=== PATIENT | female | born 1995 | race Two or more races ===

== ENCOUNTER 2016-06-13 18:24 | Emergency (ER) | payer SELFPAY ==
[~2016-06-13] VITALS: Ht 157.5 cm; Wt 82.9 kg
[2016-06-13] MEDS ORDERED: KETOROLAC 30 MG/1 ML IM ONE (19:00)
[2016-06-13] MEDS ORDERED: KETOROLAC 30 MG/1 ML ONE (19:03)
[2016-06-13 19:08] LABS: BLOOD UREA NITROGEN 11 mg/dL (7-18)
[2016-06-13 19:14] LABS: ASPARTATE AMINO TRANSFERASE 11 U/L (15-37)
[2016-06-13 19:40] VITALS: BP 107/72
== END 2016-06-13 20:06 | disposition home or self-care (01) ==
LOC: ED 20:00
DX: N83.201 Unspecified ovarian cyst, right side (principal)
CPT/HCPCS: 36415; 76830; 80053; 81003; 83690; 84703; 85025

== ENCOUNTER 2016-08-10 22:26 | Emergency (ER) | payer SELFPAY ==
[~2016-08-10] VITALS: Ht 157.5 cm; Wt 78.2 kg
[2016-08-11 00:30] LABS: BLOOD UREA NITROGEN 9 mg/dL (7-18)
[2016-08-11 02:30] VITALS: BP 109/71
== END 2016-08-11 02:40 | disposition home or self-care (01) ==
LOC: ED 23:59
DX: O46.91 Antepartum hemorrhage, unspecified, first trimester (principal); N93.9 Abnormal uterine and vaginal bleeding, unspecified; N83.202 Unspecified ovarian cyst, left side
CPT/HCPCS: 36415; 76830; 80048; 81001; 82040; 84702; 84703; 85025; 86901

== ENCOUNTER 2016-08-13 18:11 | Emergency (ER) | payer SELFPAY ==
[~2016-08-13] VITALS: Ht 157.5 cm; Wt 79.2 kg
[2016-08-13 18:22] VITALS: BP 113/74
== END 2016-08-13 20:05 | disposition home or self-care (01) ==
LOC: ED 19:59
DX: O20.0 Threatened abortion (principal); F17.200 Nicotine dependence, unspecified, uncomplicated
CPT/HCPCS: 36415; 84702; 99283

== ENCOUNTER 2017-03-11 14:27 | Emergency (ER) | payer OTHER ==
[~2017-03-11] VITALS: Ht 157.5 cm; Wt 78.7 kg
[2017-03-11 16:04] VITALS: BP 128/64
[2017-03-11 16:14] LABS: MICROSCOPIC AUTO
[2017-03-11 16:17] LABS: CULTURE INDICATED? YES
== END 2017-03-11 17:27 | disposition home or self-care (01) ==
LOC: ED 16:32
DX: N93.8 Other specified abnormal uterine and vaginal bleeding (principal)
CPT/HCPCS: 36415; 81001; 84702; 86901; 87086; 99284

== ENCOUNTER 2018-02-13 16:13 | Emergency (ER) | payer OTHER ==
[2018-02-13 17:16] LABS: HCG UR SG 1.028 (1.003-1.030)
[2018-02-13 17:18] LABS: MICROSCOPIC AUTO
[2018-02-13 17:20] LABS: CULTURE INDICATED? YES
[2018-02-13] MEDS ORDERED: ACETAMINOPHEN 325 MG TABLET PO ONE (17:30)
[2018-02-13] MEDS ORDERED: ACETAMINOPHEN 325 MG TABLET ONE (17:35)
[2018-02-13 17:41] VITALS: BP 135/70
== END 2018-02-13 17:44 | disposition home or self-care (01) ==
LOC: ED 17:35
DX: N30.00 Acute cystitis without hematuria (principal); F17.200 Nicotine dependence, unspecified, uncomplicated
CPT/HCPCS: 81001; 81025; 87086; 99283

== ENCOUNTER 2018-03-20 12:17 | Emergency (ER) | payer OTHER ==
[~2018-03-20] VITALS: Ht 157.5 cm; Wt 79.1 kg
[2018-03-20 12:21] VITALS: BP 112/78
== END 2018-03-20 12:58 | disposition home or self-care (01) ==
LOC: ED 12:55
DX: H66.002 Acute suppurative otitis media without spontaneous rupture of ear drum, left ear (principal); K02.9 Dental caries, unspecified; F32.9 Major depressive disorder, single episode, unspecified
CPT/HCPCS: 99283

== ENCOUNTER 2018-04-01 12:20 | Emergency (ER) | payer OTHER ==
[~2018-04-01] VITALS: Ht 157.5 cm; Wt 78.4 kg
[2018-04-01 12:24] VITALS: BP 106/73
[2018-04-01] MEDS ORDERED: hydrOXyzine 50MG TABLET ONE (12:50)
[2018-04-01] MEDS ORDERED: FAMOTIDINE 20 MG TABLET ONE (12:50)
[2018-04-01] MEDS ORDERED: DEXAMETHASONE 4 MG/ML, 5ML ONE (12:51)
[2018-04-01] MEDS ORDERED: FAMOTIDINE 20 MG TABLET PO ONE (13:00)
[2018-04-01] MEDS ORDERED: DEXAMETHASONE 4 MG/ML, 1ML IM ONE (13:00)
== END 2018-04-01 13:25 | disposition home or self-care (01) ==
LOC: ED 13:02
DX: L50.0 Allergic urticaria (principal); T36.0X5A Adverse effect of penicillins, initial encounter; F32.9 Major depressive disorder, single episode, unspecified; F17.200 Nicotine dependence, unspecified, uncomplicated
CPT/HCPCS: 96372; 99283; J1100; Q0177

== ENCOUNTER 2019-01-22 13:35 | Emergency (ER) | payer OTHER ==
[~2019-01-22] VITALS: Ht 157.5 cm; Wt 78.0 kg
[2019-01-22 13:37] VITALS: BP 130/85
[2019-01-22 14:08] LABS: BASOPHILS # (AUTO) 0.03 x10^3/uL (0-0.1); BASOPHILS % (AUTO) 1 % (0-1); EOSINOPHILS % (AUTO) 2 % (1-7); LYMPHOCYTES # (AUTO) 2.14 x10^3/uL (1-3.4); LYMPHOCYTES % (AUTO) 37 % (22-44); MD NO; MEAN CORPUSCULAR HEMOGLOBIN 27.7 pg (27.0-34.8); MEAN CORPUSCULAR HGB CONC 32.7 g/dL (32.4-35.8); MEAN CORPUSCULAR VOLUME 84.5 fL (80-100); MEAN PLATELET VOLUME 9.5 fL (7.4-10.4); MONOCYTES # (AUTO) 0.34 x10^3/uL (0.2-0.8); MONOCYTES % (AUTO) 6 % (2-9); NEUTROPHILS # (AUTO) 3.17 x10^3/uL (1.8-6.8); NEUTROPHILS % (AUTO) 55 % (42-75); PLATELET COUNT 362 x10^3/uL (130-400); RED BLOOD COUNT 5.06 x10^6/uL (3.82-5.3); RED CELL DISTRIBUTION WIDTH 14.3 % (9.6-15.2)
[2019-01-22 14:10] LABS: ALBUMIN 3.9 g/dL (3.4-5.0); CALCIUM 8.8 mg/dL (8.5-10.1); CREATININE 0.93 mg/dL (0.55-1.02)
[2019-01-22 14:18] LABS: ANION GAP 9 mmol/L (5-15); CHLORIDE 110 mmol/L (98-107)
--- NOTE | 2019-01-22 14:41 | NUR ---
LIFE SCIENCES DIRECTOR: PT NOT IN LOBBY @ 2070
--- NOTE | 2019-01-22 15:07 | NUR ---
CDS SALES ADVISOR: PT TO ROOM FROM LOBBY, AMBULATORY
--- NOTE | 2019-01-22 15:07 | NUR ---
PT TO ROOM FROM LOBBY
--- NOTE | 2019-01-22 16:14 | NUR ---
Patient given discharge instructions and they have confirmed that they understand the instructions. Patient ambulatory with steady gait.
--- NOTE | 2019-01-22 16:21 | NUR ---
Patient/Caregiver given discharge instructions and they have confirmed that they understand the instructions. Patient ambulatory with steady gait.
== END 2019-01-22 16:22 | disposition home or self-care (01) ==
LOC: ED 16:16
DX: N92.4 Excessive bleeding in the premenopausal period (principal); N83.02 Follicular cyst of left ovary; N83.01 Follicular cyst of right ovary; F17.200 Nicotine dependence, unspecified, uncomplicated
CPT/HCPCS: 36415; 76830; 80048; 82040; 84703; 85025; 99284

== ENCOUNTER 2019-04-26 11:28 | Emergency (ER) | payer SELFPAY ==
[~2019-04-26] VITALS: Ht 157.5 cm; Wt 79.0 kg
--- NOTE | 2019-04-26 11:34 | NUR ---
Beto reyes in ED - 04/26/19 at 1139 by RAMYA THIS RN PRESENT DURING EKG. PT TOLERATED WITH NO COMPLICATIONS.
[2019-04-26 14:01] LABS: MEAN CORPUSCULAR HEMOGLOBIN 28.2 pg (27.0-34.8); MEAN CORPUSCULAR HGB CONC 33.2 g/dL (32.4-35.8); MEAN CORPUSCULAR VOLUME 84.7 fL (80-100); MEAN PLATELET VOLUME 9.6 fL (7.4-10.4); PLATELET COUNT 297 x10^3/uL (130-400); RED BLOOD COUNT 5.24 x10^6/uL (3.82-5.3); RED CELL DISTRIBUTION WIDTH 13.7 % (9.6-15.2)
[2019-04-26 14:09] LABS: MICROSCOPIC AUTO
--- NOTE | 2019-04-26 14:11 | NUR ---
late entry: pt back from US. Pt changed into gown, resting on gurney, NAD, call light within reach, given warm blanket for comfort, denies additional needs. WCTM
[2019-04-26 14:15] LABS: ALBUMIN 4.1 g/dL (3.4-5.0); ANION GAP 6 mmol/L (5-15); CALCIUM 8.9 mg/dL (8.5-10.1); CHLORIDE 108 mmol/L (98-107); CREATININE 0.93 mg/dL (0.55-1.02)
--- NOTE | 2019-04-26 14:20 | NUR ---
TASK RN: FIRST CONTACT WITH PT. PT RESTING IN [facility], [facility] NOTED. PT REPORTS INTERMITTENT DIZZINESS X SEVERAL DAYS, TODAY WITH N/V. WORSENING DIZZINESS WITH "LOOKING DOWN AND TUCKING MY CHIN". NO GROSS NEURO DEFICITS NOTED. NO PAIN WITH CERVIAL ROM. +SINUS CONGESTION X ONE WEEK AND RECENT ABX FOR YEAST INFECTION. DENIES FEVER/CHILLS/ABD PAIN/VAGINAL DC OR BLEEDING/PAINFUL URINATION. BP/SPO2 MONITORING IN PLACE. PT UPDATED TO POC (RESULTS/RECHECK) AND DEMONSTRATES UNDERSTANDING
[2019-04-26 14:27] LABS: CULTURE INDICATED? NO
[2019-04-26 14:31] LABS: BASOPHILS # (AUTO) 0.02 x10^3/uL (0-0.1); BASOPHILS % (AUTO) 0 % (0-1); EOSINOPHILS # (AUTO) 0.04 x10^3/uL (0-0.4); EOSINOPHILS % (AUTO) 1 % (1-7); LYMPHOCYTES % (AUTO) 33 % (22-44); MD SCAN; MONOCYTES % (AUTO) 3 % (2-9); NEUTROPHILS # (AUTO) 3.94 x10^3/uL (1.8-6.8); NEUTROPHILS % (AUTO) 63 % (42-75)
[2019-04-26 15:00] VITALS: BP 116/74
== END 2019-04-26 15:04 | disposition home or self-care (01) ==
LOC: ED 15:01
DX: R11.2 Nausea with vomiting, unspecified (principal); R42 Dizziness and giddiness
CPT/HCPCS: 36415; 76830; 80048; 81001; 82040; 84703; 85025; 99284

== ENCOUNTER 2019-07-25 12:17 | Emergency (ER) | payer SELFPAY ==
[~2019-07-25] VITALS: Ht 157.5 cm; Wt 79.2 kg
[2019-07-25 12:20] VITALS: BP 125/86
== END 2019-07-25 12:44 | disposition home or self-care (01) ==
LOC: ED 12:33
DX: K02.9 Dental caries, unspecified (principal); R22.0 Localized swelling, mass and lump, head
CPT/HCPCS: 99281

== ENCOUNTER 2020-01-05 06:35 | Emergency (ER) | payer SELFPAY ==
[~2020-01-05] VITALS: Ht 157.5 cm; Wt 75.2 kg
[2020-01-05 06:40] VITALS: BP 120/49
--- NOTE | 2020-01-05 06:50 | NUR ---
PT AMBULATED TO RESTROOM WITH STEADY GAIT, URINE COLLECTED. PT CHANGED INTO GOWN. GIVEN TWO WARM BLANKETS. "I THINK I MAY BE ", PT C/O LOWER ABD PAIN. CONSTIPATION FOR A WEEK.
--- NOTE | 2020-01-05 06:59 | NUR ---
MD DELANEY AT BEDSIDE FOR EVAL.
--- NOTE | 2020-01-05 07:05 | NUR ---
URINE SENT TO LAB
[2020-01-05 07:26] LABS: MICROSCOPIC NOT IND
== END 2020-01-05 08:37 | disposition home or self-care (01) ==
LOC: ED 07:28
DX: Z32.01 Encounter for pregnancy test, result positive (principal); K59.00 Constipation, unspecified
CPT/HCPCS: 36415; 81003; 84703; 99283

== ENCOUNTER 2020-01-13 16:10 | Emergency (ER) | payer OTHER ==
[~2020-01-13] VITALS: Ht 160 cm; Wt 75.9 kg
[2020-01-13 16:41] LABS: HCG UR SG 1.017 (1.003-1.030); MICROSCOPIC NOT IND
--- NOTE | 2020-01-13 16:57 | NUR ---
NEUROLOGY PHYSICIAN: PT TO ROOM FROM LOBBY
--- NOTE | 2020-01-13 17:45 | NUR ---
PT RESTING IN BED. URINE HAS ALREAD BEEN SENT TO LAB. PT INFORMED OF ORDERED US.
[2020-01-13] MEDS ORDERED: IRON SUPPLEMENT PO (17:47)
[2020-01-13] MEDS ORDERED: PREN-1 PO (17:47)
--- NOTE | 2020-01-13 18:20 | NUR ---
PT GOING TO US
--- NOTE | 2020-01-13 19:05 | NUR ---
REPORT FROM MARISSA JADE
--- NOTE | 2020-01-13 19:25 | NUR ---
[facility] DENIES NEED FOR [facility]S.
[2020-01-13 19:28] VITALS: BP 105/60
--- NOTE | 2020-01-13 19:49 | NUR ---
DC EDUCATION PROVIDED, PT DEMONSTRATES UNDERSTANDING. PT AMBULATED STEADILY TO DC WITH RN.
== END 2020-01-13 19:51 | disposition home or self-care (01) ==
LOC: ED 19:47
DX: O20.0 Threatened abortion (principal); R10.30 Lower abdominal pain, unspecified; Z3A.01 Less than 8 weeks gestation of pregnancy
CPT/HCPCS: 36415; 76801; 81003; 81025; 84702; 86901; 99284

== ENCOUNTER 2020-01-27 07:05 | Emergency (ER) | payer OTHER ==
[~2020-01-27] VITALS: Ht 157.5 cm; Wt 78.1 kg
[~2020-01-27 07:05] MED LIST: IRON SUPPLEMENT PO; PREN-1 PO
--- NOTE | 2020-01-27 07:23 | NUR ---
PT BROUGHT BACK TO TRIAGE FOR PA ASSESSMENT AND BACK TO LOBBY.
--- NOTE | 2020-01-27 07:28 | NUR ---
[employer]: PT TO ROOM FROM LOBBY
--- NOTE | 2020-01-27 07:38 | NUR ---
PASSING CLOTS AND BACK PAIN, 7 WEEKS
[2020-01-27] MEDS ORDERED: HYDROcodone/APAP 5/325 TABLET ONE (07:55)
--- NOTE | 2020-01-27 07:57 | NUR ---
MEDICATED NOTED ON MAR AND PT TO ULTRASOUND VIA RREJI [employer] TECH
[2020-01-27] MEDS ORDERED: HYDROcodone/APAP 5/325 TABLET PO ONE (08:00)
[2020-01-27 08:21] LABS: BASOPHILS % (AUTO) 1 % (0-1); EOSINOPHILS % (AUTO) 1 % (1-7); LYMPHOCYTES % (AUTO) 24 % (22-44); MEAN CORPUSCULAR HGB CONC 33.5 g/dL (32.4-35.8); MEAN PLATELET VOLUME 9.1 fL (7.4-10.4); MONOCYTES % (AUTO) 5 % (2-9); NEUTROPHILS % (AUTO) 68 % (42-75); PLATELET COUNT 327 x10^3/uL (130-400); RED BLOOD COUNT 4.78 x10^6/uL (3.82-5.3); RED CELL DISTRIBUTION WIDTH 13.6 % (9.6-15.2)
[2020-01-27 08:31] LABS: MD NO
[2020-01-27 08:33] LABS: CHLORIDE 109 mmol/L (98-107)
[2020-01-27 08:45] LABS: ALANINE AMINOTRANSFERASE 17 U/L (12-78); ALBUMIN 3.7 g/dL (3.4-5.0); ALKALINE PHOSPHATASE 48 U/L (45-117); ANION GAP 5 mmol/L (5-15); BILIRUBIN,TOTAL 0.9 mg/dL (0.2-1.0); CALCIUM 8.9 mg/dL (8.5-10.1); CREATININE 0.81 mg/dL (0.55-1.02); TOTAL PROTEIN 7.2 g/dL (6.4-8.2)
[2020-01-27 09:08] VITALS: BP 96/51
--- NOTE | 2020-01-27 09:08 | NUR ---
AFTER RETURNING TO FLOOR PT UOB AND VOMITED X1. PT STATES SHE FELT SOMETHING PASSED VAGINALLY AND UOB TO BATHROOM.
[2020-01-27] MEDS ORDERED: KETOROLAC 30 MG/1 ML IM ONE (09:30)
[2020-01-27] MEDS ORDERED: ONDANSETRON ODT 8 MG PO ONE (09:30)
[2020-01-27] MEDS ORDERED: KETOROLAC 30 MG/1 ML ONE (09:37)
[2020-01-27] MEDS ORDERED: ONDANSETRON ODT 8 MG ONE (09:37)
--- NOTE | 2020-01-27 09:45 | NUR ---
AFTER MD WELLS MEDICATED NOTED ON APR. PAIN HAS DECREASED SINCE PASSING TISSUE IN BATHROOM.
== END 2020-01-27 09:59 | disposition home or self-care (01) ==
LOC: ED 07:45
DX: O03.9 Complete or unspecified spontaneous abortion without complication (principal); R10.2 Pelvic and perineal pain
CPT/HCPCS: 36415; 76801; 80053; 84702; 85025; 96372; 99284; J1885; Q0162

== ENCOUNTER 2020-06-28 00:14 | Emergency (ER) | payer OTHER ==
[~2020-06-28] VITALS: Ht 160 cm; Wt 80.5 kg
--- NOTE | 2020-06-28 00:42 | NUR ---
PT UP TO RESTROOM FOR URINE SAMPLE AT THIS TIME.
[2020-06-28 00:58] LABS: MICROSCOPIC NOT IND
[2020-06-28 01:02] LABS: BASOPHILS % (AUTO) 1 % (0-1); EOSINOPHILS % (AUTO) 2 % (1-7); LYMPHOCYTES % (AUTO) 28 % (22-44); MD NO; MEAN CORPUSCULAR HEMOGLOBIN 27.9 pg (27.0-34.8); MEAN CORPUSCULAR HGB CONC 33.6 g/dL (32.4-35.8); MEAN PLATELET VOLUME 9.2 fL (7.4-10.4); MONOCYTES % (AUTO) 7 % (2-9); NEUTROPHILS % (AUTO) 63 % (42-75); PLATELET COUNT 269 x10^3/uL (130-400); RED BLOOD COUNT 4.73 x10^6/uL (3.82-5.3); RED CELL DISTRIBUTION WIDTH 13.6 % (9.6-15.2)
--- NOTE | 2020-06-28 01:06 | NUR ---
REPORT TO PANKAJ TRANSFER OF CARE
[2020-06-28 01:14] LABS: ALBUMIN 3.3 g/dL (3.4-5.0); ANION GAP 6 mmol/L (5-15); CALCIUM 8.6 mg/dL (8.5-10.1); CHLORIDE 110 mmol/L (98-107); CREATININE 0.78 mg/dL (0.55-1.02)
[2020-06-28 02:16] VITALS: BP 96/64
== END 2020-06-28 03:05 | disposition home or self-care (01) ==
LOC: ED 02:55
DX: O26.891 Other specified pregnancy related conditions, first trimester (principal); M54.5 Low back pain; Z3A.01 Less than 8 weeks gestation of pregnancy
CPT/HCPCS: 36415; 76801; 80048; 81003; 82040; 84702; 85025; 86901; 99284

== ENCOUNTER 2020-07-13 06:41 | Emergency (ER) | payer OTHER ==
[~2020-07-13] VITALS: Ht 157.5 cm; Wt 81.7 kg
--- NOTE | 2020-07-13 07:10 | NUR ---
assumed carte of pt. pt here for c/o vaginal bleeding since this AM. pt reports that she is about 9 weeks , . pt reports that all previosu pregnancies have ended in miscarriage and that her last was 01/2020. pt reports that her bleeding has been very scant, only mild spotting, and has not had enough bleeding to use a pad. pt reports that she is having some mild low abdominal cramping. no urinary complaints. pt sitting up on gurney using her cell phone. no family at bedside. pt made aware that urine sample needed
--- NOTE | 2020-07-13 07:30 | NUR ---
pt to RAD
[2020-07-13 07:41] LABS: MICROSCOPIC NOT IND
--- NOTE | 2020-07-13 08:10 | NUR ---
pt returned from US. resting in position of comfort report to [facility] for lunch
[2020-07-13 08:24] LABS: BASOPHILS % (AUTO) 1 % (0-1); EOSINOPHILS % (AUTO) 2 % (1-7); LYMPHOCYTES % (AUTO) 22 % (22-44); MEAN CORPUSCULAR HEMOGLOBIN 28.2 pg (27.0-34.8); MEAN CORPUSCULAR HGB CONC 33.7 g/dL (32.4-35.8); MONOCYTES % (AUTO) 7 % (2-9); NEUTROPHILS % (AUTO) 69 % (42-75); PLATELET COUNT 326 x10^3/uL (130-400); RED BLOOD COUNT 4.81 x10^6/uL (3.82-5.3)
[2020-07-13 08:25] LABS: MD NO
[2020-07-13 08:36] LABS: ALANINE AMINOTRANSFERASE 18 U/L (12-78); ALBUMIN 3.6 g/dL (3.4-5.0); ANION GAP 5 mmol/L (5-15); CALCIUM 8.6 mg/dL (8.5-10.1); CHLORIDE 109 mmol/L (98-107); CREATININE 0.81 mg/dL (0.55-1.02)
--- NOTE | 2020-07-13 08:45 | NUR ---
no changes. pt resting in position of comfort. no new c/o. no family at bedside
[2020-07-13 08:53] LABS: ALKALINE PHOSPHATASE 41 U/L (45-117); BILIRUBIN,TOTAL 0.7 mg/dL (0.2-1.0); TOTAL PROTEIN 6.9 g/dL (6.4-8.2)
--- NOTE | 2020-07-13 09:30 | NUR ---
chart up for MD recheck
[2020-07-13 10:24] VITALS: BP 110/60
== END 2020-07-13 10:28 | disposition home or self-care (01) ==
LOC: ED 06:56
DX: O20.0 Threatened abortion (principal); Z3A.01 Less than 8 weeks gestation of pregnancy
CPT/HCPCS: 36415; 76801; 80053; 81003; 84702; 85025; 86901; 99284

== ENCOUNTER 2020-10-17 20:44 | Emergency (ER) | payer OTHER ==
[~2020-10-17] VITALS: Ht 157.5 cm; Wt 87.3 kg
[2020-10-17 20:50] VITALS: BP 117/70
[2020-10-18 00:32] LABS: MICROSCOPIC NOT IND
--- NOTE | 2020-10-18 01:46 | NUR ---
BREAK RN: PT GIVEN F/U AND D/C INSTRUCTIONS AND SHE V/U. PT AMBULATED TO DISCHARGE DESK.
== END 2020-10-18 01:48 | disposition home or self-care (01) ==
LOC: MERGE 20:44 → ED 23:59
DX: O26.891 Other specified pregnancy related conditions, first trimester (principal); R10.30 Lower abdominal pain, unspecified; Z3A.13 13 weeks gestation of pregnancy
CPT/HCPCS: 76801; 81003; 99284